=== PATIENT | female | born 1995 ===

== ENCOUNTER 2020-06-17 20:29 | Inpatient (IN) | payer OTHER ==
[~2020-06-17] VITALS: Ht 157.5 cm; Wt 99.8 kg
[2020-06-17 21:15] VITALS: BP 122/82; Ht 157.5 cm; Wt 99.8 kg
[2020-06-17 23:53] LABS: HEMATOCRIT 31.2 % (36.0-48.0); MCH 25.8 pg (26.0-34.0); MCHC 32.1 g/dL (31.0-37.0); MCV 80.4 fL (80.0-100.0); MEAN PLATELET VOLUME 11.9 fL (7.4-10.4); RBC 3.88 10x6/uL (4.00-5.40); RDW 14.4 % (11.5-14.5); WBC 12.2 10x3/uL (4.8-10.8)
[2020-06-18 00:04] LABS: BILIRUBIN NEGATIVE (NEGATIVE); KETONE MODERATE mg/dL (NEGATIVE); NITRITE NEGATIVE (NEGATIVE); UROBILINOGEN NORMAL mg/dL (< 2)
[2020-06-18 00:07] LABS: UDS - AMPHET NEGATIVE QUAL (NEGATIVE); UDS - BARB NEGATIVE QUAL (NEGATIVE); UDS - BENZO NEGATIVE QUAL (NEGATIVE); UDS - COCAINE NEGATIVE QUAL (NEGATIVE); UDS - OPIATE NEGATIVE QUAL (NEGATIVE); UDS - PCP NEGATIVE QUAL (NEGATIVE); UDS - THC NEGATIVE QUAL (NEGATIVE)
[2020-06-18 18:56] VITALS: BP 109/59
--- NOTE | 2020-06-18 18:56 | NUR ---
PATIENT TO ROOM 1278 FOR RECOVERY. BEDSIDE SHIFT REPORT RECEIVED FROM POWER BALLAST MACHINE OPERATOR, VITAL SIGNS WNL. FUNDUS FIRM,ML/U-2,BLEEDING SCANT. DRESSING IN PLACE, CDI. PT DROWSY BUT ANSWERS QUESTIONS APPROPRIATELY. IV FLUIDS INFUSING PER MD ORDERS AND DIOR CATHETER DRAINING TO GRAVITY.
[2020-06-18 19:11] VITALS: BP 115/58
--- NOTE | 2020-06-18 19:11 | NUR ---
PT RESTING QUIETLY WITH EYES CLOSED, RESPIRATIONS EVEN AND NON LABORED, NO DISTRESS NOTED. WILL CONTINUE TO MONITOR.
[2020-06-18 19:34] VITALS: BP 120/57
--- NOTE | 2020-06-18 19:34 | NUR ---
PATIENT RESTING IN BED WITH EYES OPEN, NURSERY RN AT BEDSIDE DISCUSSING INFANTS PLAN OF CARE. NO NEEDS IDENTIFIED, WILL CONTINUE TO MONITOR.
--- NOTE | 2020-06-18 19:43 | NUR ---
CAGE MAKER MACHINE INITIATED, DR HOLLOWAY CALLED AT THIS TIME TO VERIFY 40MG/4 HR LOCKOUT. PATIENT INSTRUCTED ON USE. PT VERBALIZES UNDERSTANDING.
[2020-06-18 19:45] VITALS: BP 122/62
[2020-06-18 20:45] VITALS: BP 129/62
--- NOTE | 2020-06-18 20:45 | NUR ---
PATIENT STATES THAT SHE IS FEELING WARM, TEMPERATURE TAKEN 99.6 ORAL. PT HAS MULTIPLE BLANKETS ON HER FROM SURGERY, TWO BLANKETS REMOVED AND WILL RECHECK TEMP. FRESH ICE PACK PLACED AND ICE CHIPS PROVIDED PER PT REQUEST. NO FURTHER NEEDS IDENTIFIED. WILL CONTINUE TO MONITOR.
[2020-06-18 21:56] VITALS: BP 126/66
--- NOTE | 2020-06-18 21:56 | NUR ---
PERICARE PERFORMED. FUNDUS REMAINS FIRM,ML/U-2. BLEEDING SCANT. FRESH ICE PACK PLACED TO ABDOMEN. DIOR CATHETER REMAINS DRAINING TO GRAVITY. PT DENIES NEEDS. PAIN CONTROL IS APPROPRIATE USING VENIPUNCTURIST. WILL CONTINUE TO MONITOR.
--- NOTE | 2020-06-18 22:45 | NUR ---
ICE CHIPS PROVIDED PER PT REQUEST.
--- NOTE | 2020-06-19 01:10 | NUR ---
CALLED TO ROOM BY PATIENT, STATES THAT SHE FEELS WET AND NEEDS TO BE CLEANED UP. PERICARE DONE, BLEEDING REMAINS SCANT, QUARTER SIZED CLOT EXPELLED ON FUNDAL MASSAGE. FUNDUS REMAINS FIRM,ML,U-2. FRESH CUP OF ICE PROVIDED, NO FURTHER NEEDS IDENTIFIED. WILL CONTINUE TO MONITOR.
--- NOTE | 2020-06-19 02:51 | NUR ---
TORADOL 30MG ADMINISTERED SLOW IVP PER MD ORDERS.
--- NOTE | 2020-06-19 03:43 | NUR ---
NEW IV FLUIDS HUNG PER MD ORDERS INFUSING VIA ALARIS PUMP, SEE EMAR
--- NOTE | 2020-06-19 05:57 | NUR ---
PERICARE PERFORMED, CLEAN PAD PLACED. BLEEDING SMALL RUBRA WITH A QUARTER SIZED CLOT ON PAD. APPLE JUICE PROVIDED PER PT REQUEST. FRESH ICE PACK PLACED TO ABDOMEN. LAB AT BEDSIDE
[2020-06-19 07:22] LABS: BASOPHILS 0.1 % (0-2); EOSINOPHILS 0.1 % (0-7); HEMATOCRIT 25.9 % (36.0-48.0); IMMATURE GRANULOCYTES 0.2 % (0-5); LYMPHOCYTE ABS# 1.33 10x3/uL (1.18-3.74); LYMPHOCYTES 10.5 % (15-50); MCH 24.9 pg (26.0-34.0); MCHC 30.9 g/dL (31.0-37.0); MCV 80.7 fL (80.0-100.0); MEAN PLATELET VOLUME 12.1 fL (7.4-10.4); MONOCYTES 9.4 % (2-11); NEUTROPHILS 79.7 % (40-80); PLATELET COUNT 176 10x3/uL (130-400); RBC 3.21 10x6/uL (4.00-5.40); WBC 12.7 10x3/uL (4.8-10.8)
[2020-06-19 08:14] LABS: RAPID PLASMA REAGIN Non Reactive (Non Reactive)
--- NOTE | 2020-06-19 08:25 | NUR ---
DR. HOLLOWAY CALLS TO UNIT, TELEPHONE ORDERS RECEIVED TO NORMALIZE PT, MAY HAVE REGULAR DIET, SL LOCK IV AND DC DIOR CATH, CHANGE SATELLITE TV INSTALLER TO PO MEDICATION.
--- NOTE | 2020-06-19 08:35 | NUR ---
AM ASSESSMENT COMPLETED. SEE FLOWSHEET. PT DENIES N/V, DIZZINESS, SOB, CHEST PAIN OR DIFFICULTY BREATHING. DIETARY HAS SERVED CLEARS FOR BREAKFAST, BUT PT HAS ORDERS TO ADVANCE TO REGULAR, PT IS VEGETARIAN, MENU AND DIETARY # PROVIDED TO PT. INCENTIVE SPIROMETER PROVIDED WITH INSTRUCTIONS, PT IS USING WELL, AND ENCOURAGED TO USE EVERY HOUR, AND PERFORM COUGHING AND DEEP BREATHING EXERCISES. PT DENIES ALL OTHER NEEDS. SRUP X2, CALL LIGHT AND PHONE WITHIN REACH.
[2020-06-19 08:41] VITALS: BP 119/66
--- NOTE | 2020-06-19 10:00 | NUR ---
TO PT'S ROOM, PT IS SITTING UP IN THE BED, MEDICATION SCHEDULE EXPLAINED TO PT, PT DENIES QUESTIONS. SEE EMAR FOR ALL MEDS ADM BY THIS RN. IV SL AFTER TORADOL IV WAS GIVEN, AND MORPHINE SOCIOCULTURAL ANTHROPOLOGY PROFESSOR BUTTON PUSHED ONE LAST TIME. LARGE ICE WATER SERVED TO PT. PT CONTINUES TO USE INCENTIVE SPIROMETER WELL. AT BEDSIDE, BEING TENDED TO BY FATHER OF BABY. SRUP X2, CALL LIGHT AND PHONE WITHIN REACH.
--- NOTE | 2020-06-19 12:00 | NUR ---
PT TITLE ONE KINDERGARTEN TEACHER LIGHT. THIS NURSE TO ROOM. PT STATES HAS URGE TO VOID. PT ASSISTED OUT OF BED. AMB TO BR WITH STEADY GAIT. PT VOIDS 400 ML OF BLOOD-TINGED URINE. PERICARE DONE. PAD AND PANTIES ON. PT AMBULATES IN ROOM AT THIS TIME. DENIES NEEDS OR C/O.
--- NOTE | 2020-06-19 14:45 | NUR ---
PT SITTING UP ON SIDE OF BED, ON CELL PHONE. IN CRIB AT BEDSIDE RESTING WITH EYES CLOSED. NO DISTRESS NOTED. PT DENIES ALL NEEDS AT THIS TIME. SIG OTHER AT BEDSIDE. SRUP X2, CALL LIGHT AND PHONE WITHIN REACH.
--- NOTE | 2020-06-19 15:10 | NUR ---
PT DOUGH CUTTER LIGHT. THIS NURSE TO ROOM. PT GETTING BACK IN BED. REQUESTS AND RECEIVES SCDS BACK ON. PUMP ON.
--- NOTE | 2020-06-19 17:30 | NUR ---
PT DENIES ALL NEEDS AT THIS TIME. REGULAR SUPPER TRAY SERVED BY DIETARY PT DENIES N/V, SOB, DIZZINESS, CHEST PAIN. SEE EMAR FOR ALL MEDS ADM BY THIS RN. SIG OTHER AT BEDSIDE. SRUP X2, CALL LIGHT AND PHONE WITHIN REACH.
--- NOTE | 2020-06-19 19:35 | NUR ---
PT REC'D IN BED AT THIS TIME. FEEDING NFANT. NO DISTRESS NOTED. CALL LIGHT IN PT REACH. Fadi LEMA RN
[2020-06-19 20:23] VITALS: BP 114/67
--- NOTE | 2020-06-19 20:23 | NUR ---
PT REC'D IN BED AT THIS TIME. STATES PAIN IS A 2-3 AT THIS TIME. FUNDUS IS FIRM WITH SCNAT LOCHIA NOTED. INCISION INTACT WITH SURGICAL ADHESIVE. NO S/S OF INFECTION NOTED. NO DIFFICULTY VOIDING AND TOLERATING REGULAR DIET. NO DISTRESS NOTED. Fadi LEMA RN
--- NOTE | 2020-06-19 21:27 | NUR ---
PT MEDICATED WITH MOTRIN AT THIS TIME. STATES THAT PAIN IS A 4/10. OFFERED PERCOCET AT THIS TIME. REFUSED. NO DISTRESS NOTED. Fadi LEMA RN
--- NOTE | 2020-06-19 23:25 | NUR ---
PT IN BED AT THIS TIME. DENIES PAIN. S/O AT BEDSIDE AND SUPPORTIVE. Fadi LEMA RN
[2020-06-20 00:02] VITALS: BP 113/62
--- NOTE | 2020-06-20 00:02 | NUR ---
PT AROUSES TO OPENING OF DOOR, VS OBTAINED, PT DENIES NEEDS OR PAIN, IN OPEN CRIB CART AND FOB AT BEDSIDE
--- NOTE | 2020-06-20 03:23 | NUR ---
PT MEDICATED WITH SCHEDULED MOTRIN. PAIN 05/18. L GEOFFREY LEMA
[2020-06-20 04:29] VITALS: BP 113/68
--- NOTE | 2020-06-20 04:29 | NUR ---
VSS. PT STATES PAIN 03/20. NO DISTRESS NOTED. Fadi LEMA RN
--- NOTE | 2020-06-20 05:25 | NUR ---
PT RESTING WELL AT THIS TIME. NO DISTRESS NOTED. Fadi LEMA RN
[2020-06-20 06:41] LABS: BASOPHILS 0.1 % (0-2); EOSINOPHILS 0.8 % (0-7); HEMATOCRIT 25.9 % (36.0-48.0); HEMOGLOBIN 8.2 g/dL (12-16); IMMATURE GRANULOCYTES 0.4 % (0-5); LYMPHOCYTE ABS# 1.71 10x3/uL (1.18-3.74); LYMPHOCYTES 16.8 % (15-50); MCH 25.5 pg (26.0-34.0); MCHC 31.7 g/dL (31.0-37.0); MCV 80.7 fL (80.0-100.0); MONOCYTES 6.3 % (2-11); NEUTROPHIL ABS# 7.67 10x3/uL (1.56-6.13); NEUTROPHILS 75.6 % (40-80); PLATELET COUNT 162 10x3/uL (130-400); RBC 3.21 10x6/uL (4.00-5.40); RDW 15.4 % (11.5-14.5); WBC 10.2 10x3/uL (4.8-10.8)
--- NOTE | 2020-06-20 07:52 | NUR ---
THIS RN TO PT ROOM FOR SHIFT ASSESSMENT. PT SITTING UP IN BED, HOLDING . PT AAOx3. RATES PAIN 2/10, DENIES NEED FOR PAIN INTERVENTION. PT DENIES HEAVY LOCHIA OR CONCERNS WITH BLEEDING. PT REQUESTS THIS RN RETURN FOR VS AND SHIFT ASSESSMENT AFTER BREAKFAST SO SHE CAN CONTINUE HOLDING INFANT. WILL RETURN FOR SHIFT ASSESSMENT. SRUx2, CL IN REACH.
--- NOTE | 2020-06-20 11:28 | NUR ---
DR BELTRAN TO PT ROOM DISCUSSING D/C TO HOME WITH PARENTS. AGREEABLE THEY ARE READY FOR D/C TO HOME.
[2020-06-20] MEDS ORDERED: PERCOCET 5-3251 TAB PO (11:48)
[2020-06-20 12:24] VITALS: BP 116/76
--- NOTE | 2020-06-20 12:24 | NUR ---
ASSESSMENT COMPLETE AND VSS, SEE FLOWSHEET.
--- NOTE | 2020-06-20 12:29 | NUR ---
PT ADMIN MOTRIN AND RHOGAM ORDERED, SEE EMAR FOR DOC.
--- NOTE | 2020-06-20 12:55 | NUR ---
DISCHARGE TEACHING COMPLETED, PRESCRIPTION PROVIDED TO PT PROVIDED BY DR HOLLOWAY FOR PAIN CONTROL POST D/C TO HOME. PT INFORMED DR HOLLOWAY STATES SHE WILL ESCRIBE IRON TO PT'S PHARMACY DISCUSSED THIS AM. MED TEACHING DONE WELL. PT VERBALIZES UNDERSTANDING OF INSTRUCTIONS, SIGNS CHART COPIES, PT COPIES GIVEN. PT PROVIDED WITH [facility] CARD FOR F/U WITH DR HOLLOWAY ON 07/04/20. PT PROVIDED WITH PADS AND PANTIES PER REQUEST, DENIES FURTHER NEEDS. GATHERING BELONGINGS FOR D/C TO HOME. INFORMED AWAITING NURSERY TO COMPLETE DISCHARGE.
--- NOTE | 2020-06-20 15:20 | NUR ---
PT TAKEN OFF UNIT VIA W/C FOR D/C TO HOME WITH INFANT. SIG OTHER TO DRIVE PT HOME.
== END 2020-06-20 15:20 | disposition home or self-care (01) | DRG 788 ==
LOC: D.LD 20:29
PROVIDERS: ADMIT Student in an Organized Health Care Education/Training Program; ATTEND Student in an Organized Health Care Education/Training Program
PROC: 10D00Z1 Extraction of Products of Conception, Low, Open Approach (ICD-10-PCS; principal; 2020-06-18 18:00)
DX: O36.8330 Maternal care for abnormalities of the fetal heart rate or rhythm, third trimester, not applicable or unspecified (principal); Z3A.40 40 weeks gestation of pregnancy; Z37.0 Single live birth; O77.0 Labor and delivery complicated by meconium in amniotic fluid